=== PATIENT | female | born 1960 | race Caucasian/White ===

== ENCOUNTER → 2019-03-26 | Outpatient (CLI) | payer OTHER ==
--- NOTE | 2019-03-26 16:36 | RAD ---
Right foot, 3 views, 03/26/2019: HISTORY: Right foot pain No recent fracture or dislocation is identified. There is deformity of the second metatarsal shaft compatible with old healed fracture. There are minimal scattered degenerative changes. A minimal hallux valgus deformity is present. IMPRESSION: No acute bony abnormality is detected. Electronically signed by: Eric Nielsen MD (03/26/2019 4:32 PM) [facility]
== END | disposition home or self-care (01) ==
LOC: DXRAD 16:07
PROVIDERS: ATTEND Orthopaedic Surgery
DX: M19.071 Primary osteoarthritis, right ankle and foot (principal); M20.11 Hallux valgus (acquired), right foot
CPT/HCPCS: 73630

== ENCOUNTER → 2020-04-21 | Outpatient (CLI) | payer OTHER ==
--- NOTE | 2020-04-21 14:40 | RAD ---
FOOT LEFT 3V History: Reason: LEFT FOOT PAIN, WEIGHTBEARING / Spl. Instructions: / History: Technique: 3 views left foot. Comparison: None. Findings: Normal alignment. No acute fracture. Mild first metatarsophalangeal DJD. Pes planus. Impression: 1. Pes planus. 2. Mild first MTP DJD. Electronically signed by: Bharathi Kline DO (04/21/2020 2:37 PM) [facility]
== END | disposition home or self-care (01) ==
LOC: DXRAD 10:15
PROVIDERS: ATTEND Podiatrist Foot & Ankle Surgery
DX: M21.42 Flat foot [pes planus] (acquired), left foot (principal); M20.42 Other hammer toe(s) (acquired), left foot; M19.072 Primary osteoarthritis, left ankle and foot
CPT/HCPCS: 73630

== ENCOUNTER → 2021-03-24 | Outpatient (CLI) | payer OTHER ==
--- NOTE | 2021-03-24 16:55 | RAD ---
EXAM: 3 views of the right ankle DATE: 03/24/2021 3:30 PM INDICATION: Reason: ANKLE PAIN X 2 WEEKS HX OF FX 2014 / Spl. Instructions: / History: COMPARISON: No Prior FINDINGS: No acute fracture or dislocation. Ankle mortise is congruent. Talar dome is intact. Mild midfoot dege nerative changes. No significant soft tissue swelling. Decreased bone mineral density. Small plantar calcaneal enthesophyte. IMPRESSION: 1. No acute fracture or dislocation. 2. Mild midfoot degenerative changes. 3. Small plantar calcaneal enthesophyte. Electronically signed by: Angel Vasquez MD (03/24/2021 4:53 PM) [id number]
== END ==
LOC: RAD 15:10
PROVIDERS: ATTEND Orthopaedic Surgery
DX: M19.071 Primary osteoarthritis, right ankle and foot (principal); M77.31 Calcaneal spur, right foot
CPT/HCPCS: 73610